=== PATIENT | female | born 1975 | race Hispanic/Latino ===

== ENCOUNTER 2017-12-14 07:47 | Outpatient (CLI) | payer OTHER | END 2017-12-14 07:48 | disposition home or self-care (01) | LOC: BICULT 07:47 | PROVIDERS: ATTEND Family Medicine | DX: R74.0 Nonspecific elevation of levels of transaminase and lactic acid dehydrogenase [LDH] (principal); K80.20 Calculus of gallbladder without cholecystitis without obstruction; K76.0 Fatty (change of) liver, not elsewhere classified | CPT/HCPCS: 76705 ==

== ENCOUNTER 2018-11-10 09:33 | Outpatient (CLI) | payer OTHER | END 2018-11-10 09:34 | disposition home or self-care (01) | LOC: DTY/OP 09:33 | PROVIDERS: ATTEND Family Medicine | DX: K76.0 Fatty (change of) liver, not elsewhere classified (principal); R73.03 Prediabetes | CPT/HCPCS: 97802 ==

== ENCOUNTER 2023-01-07 08:40 | Outpatient (CLI) | payer BC | END 2023-01-07 08:41 | disposition home or self-care (01) | LOC: BICMAMMO 08:40 | PROVIDERS: ATTEND Family Medicine | DX: Z12.31 Encounter for screening mammogram for malignant neoplasm of breast (principal); Z80.3 Family history of malignant neoplasm of breast | CPT/HCPCS: 77063; 77067 ==

== ENCOUNTER 2024-01-18 09:56 | Outpatient (CLI) | payer BC | END 2024-01-18 09:57 | disposition home or self-care (01) | LOC: ULT 09:56 | PROVIDERS: ATTEND Family Medicine | DX: R74.8 Abnormal levels of other serum enzymes (principal); K80.20 Calculus of gallbladder without cholecystitis without obstruction; N28.9 Disorder of kidney and ureter, unspecified; R93.2 Abnormal findings on diagnostic imaging of liver and biliary tract; R93.422 Abnormal radiologic findings on diagnostic imaging of left kidney | CPT/HCPCS: 76700 ==

== ENCOUNTER 2024-01-26 08:21 | Outpatient (CLI) | payer BC ==
[2024-01-26] MEDS ORDERED: Iopamidol 370 76% 100 ML VIAL ONE (10:20)
== END 2024-01-26 08:22 | disposition home or self-care (01) ==
LOC: CT 08:21
PROVIDERS: ATTEND Family Medicine
DX: N28.1 Cyst of kidney, acquired (principal); K76.0 Fatty (change of) liver, not elsewhere classified; N28.89 Other specified disorders of kidney and ureter
CPT/HCPCS: 74170; Q9967

== ENCOUNTER 2024-02-10 12:17 | Outpatient (CLI) | payer BC | END 2024-02-10 12:18 | disposition home or self-care (01) | LOC: BICMAMMO 12:17 | PROVIDERS: ATTEND Family Medicine | DX: Z12.31 Encounter for screening mammogram for malignant neoplasm of breast (principal); Z80.3 Family history of malignant neoplasm of breast | CPT/HCPCS: 77063; 77067 ==